=== PATIENT | female | born 1930 | race Caucasian/White ===

== ENCOUNTER 2016-07-12 10:01 | Inpatient (IN) | payer MEDICARE, OTHER ==
[~2016-07-12] VITALS: Ht 167.6 cm; Wt 64.9 kg
--- NOTE | ~2016-07-12 | PR ---
[place], [place] PROGRESS NOTE NAME: DELILAH MCARTHUR UNIT #: [id number] ROOM: 424 DOCTOR: MARIXA YEUNG MD BIRTHDATE: [birth year] DOS: 07/13/2016 REASON FOR VISIT: Elevated cardiac enzymes. SUBJECTIVE: The patient is alert, no acute distress. Denies any chest pain or shortness of breath. She wanted to go home. No PND, no orthopnea, no fever and chills. She is feeling much better. No dizziness. RHYTHM STRIPS: The patient in sinus rhythm. PHYSICAL EXAMINATION: VITAL SIGNS: Blood pressure 126/72, pulse 72, respiratory rate was 18. GENERAL: Alert, comfortable, in no acute distress. HEENT: Pupils are round and equal. No jaundice. Tongue was moist and pharynx was clear. NECK: Supple, no distended neck veins, no carotid bruit. CHEST: Symmetrical, nontender. LUNGS: Clear to auscultation bilaterally. HEART: Regular rhythm. No S3. Grade 1/6 systolic murmur. ABDOMEN: Bowel sounds normal. EXTREMITIES: Showed trace edema. SKIN: Warm and dry. No cyanosis, no clubbing. NEUROLOGIC: The patient is alert. No focal neurologic deficit. DIAGNOSTIC TESTS: Hemoglobin 13.9, creatinine 0.82. CPK 62 and 64. CK-MB was 2.4 and 2.2, troponin 0.478 and 0.348. IMPRESSION: 1. Borderline elevation of cardiac enzymes, possible non-ST segment elevation myocardial infarction versus acute renal failure. The patient denies any chest pain. 2. Acute renal failure, improved. 3. Mild dehydration, resolved. 4. Hypertension, stable. 5. Pulmonary hypertension, stable. RECOMMENDATIONS: 1. Continue current medications. 2. Discontinue the heparin tomorrow. 3. I will review her 2D echo. 4. Possible discharge tomorrow. 5. There is no family member at bedside. 6. Conservative medical therapy per family's preference. [place], [place] PROGRESS NOTE NAME: DELILAH MCARTHUR UNIT #: [id number] ROOM: 424 DOCTOR: MARIXA YEUNG MD BIRTHDATE: [birth year] MARIXA YEUNG MD CM:IVELISSE [id number] 2 MARIXA YEUNG MD 07/14/16402 interface
--- NOTE | ~2016-07-12 | CON ---
[place], [place] [facility]ATION [id number] UNIT #: [id number] ROOM: 424 DOCTOR: NEHEMIAH GALICIA ED.D (JAYLENE) BIRTHDATE: [birth year] DOS: 07/14/2016 HISTORY OF PRESENT ILLNESS: The patient is an 86-year-old female referred by the hospitalist for competency evaluation. At the present time, this patient is on the 4th floor at [facility]. This patient has been retired for many years, and is a with three children[address] Dr. Perez is her family physician, and her medical history is pertinent for depression, diabetes mellitus, GERD and dementia. Her medications include Xanax, aspirin, Celexa, metoprolol, Lasix, glipizide, Claritin, Cozaar, lovastatin, Namenda, and metformin. This patient was awake, alert and oriented to person and place only. She had no idea of the year or the time of the year. She could not answer simple questions about current events and is clearly suffering from neurocognitive decline. She does not appear to be having any active hallucinations or delusional thoughts. In my opinion, this patient is clearly not competent to make informed healthcare decisions and all decision should be made by her healthcare power of family law attorney. Apparently, her healthcare power of family law attorney is her son, family law attorney Reid Mcarthur. DIAGNOSIS: Major neurocognitive disorder - Alzheimer's disease. RECOMMENDATIONS: In my opinion, all decision should be made by her healthcare power of family law attorney. Thank you very much for this consult. NEHEMIAH GALICIA ED.D CM:CONSTR:REPORT OF CONSULTATION 1453 07/15/16 0058 interface
--- NOTE | ~2016-07-12 | PR ---
[place], [place] PROGRESS NOTE [facility]: [id number] UNIT #: [id number] ROOM: 424 DOCTOR: ANJANA MURPHY,MARIXA BIRTHDATE: [birth year] DOS: 07/14/2016 ADDENDUM REASON FOR VISIT: Elevated cardiac enzymes. This note is an addendum to the note done by Dr. Rasheed Michaels. I personally examined and assessed the patient. Rhythm strips and medications reviewed. PHYSICAL EXAMINATION: HEART: Focused cardiac exam showed heart with regular rhythm, no S3. LUNGS: Clear to auscultation. EXTREMITIES: Showed no edema. IMPRESSION: 1. Elevated cardiac enzymes, non ST-segment elevation myocardial infarction with acute renal failure. 2. Acute renal failure, resolved. 3. Pulmonary hypertension. 4. Dehydration, resolved. RECOMMENDATIONS: 1. She denies any chest pain. 2. Continue her current medications and resume Lasix 20 mg every other day. 3. Just Conservative medical therapy due to her multiple comorbidities. 4. Possibly, she will be discharged tomorrow to a rehab facility. This was discussed with her family members. 5. Cardiology will see as needed. MARIXA YEUNG MD CM:PNTRANS [id number] [id number] MARIXA YEUNG MD 07/15/16200 interface
--- NOTE | ~2016-07-12 | CON ---
[place], [place] REPORT OF CONSULTATION NAME: DELILAH MCARTHUR UNIT #: [id number] ROOM: 424 DOCTOR: ANJANA MURPHY,MARIXA BIRTHDATE: [birth year] DOS: 07/12/2016 CARDIOLOGY CONSULT REASON FOR CONSULTATION: Elevated cardiac enzymes and CHF. This note is an addendum to the note dictated by Dr. Rasheed Michaels. I personally examined and assessed the patient, discussed with her family member and the patient's past medical history, labs and pertinent information was reviewed. The case was discussed with Dr. Michaels. Dr. Michaels's examination, assessment reflects my work. The patient was admitted for shortness of breath from home. She is a poor historian due to her dementia hence history was obtained from the chart and her family. Cardiology consult was obtained because of CHF and elevated troponin. She noted to be in acute renal failure and currently receiving IV fluids. Again, she is a poor historian and hence unable to assess any accurate history as far as her chest pains are concerned. PHYSICAL EXAMINATION: HEART: Regular rhythm. Grade 1/6 systolic murmur. EXTREMITIES: Showed trace edema. LUNGS: Clear to auscultation bilaterally. REVIEW OF THE DIAGNOSTIC TESTS: EKG showed sinus rhythm with possible old anterior infarction. 2D echo in 2014 showed normal LV function with a mild to moderate tricuspid regurgitation. DIAGNOSTIC IMPRESSION: 1. Elevated troponin due to acute renal failure versus non-ST elevation myocardial infarction. 2. Chronic diastolic heart failure. 3. Moderate pulmonary hypertension. 4. Acute renal insufficiency. 5. Possible dehydration. 6. Hypertension. 7. Diabetes type 2. RECOMMENDATIONS: 1. Clinically, she appears to be stable, in no acute distress. She wanted to go home. 2. Continue her aspirin, beta blockers, statins as well as heparin. 3. Cycle her cardiac enzymes and we will check 2D echo for LV function and valvular function. 4. Her EKG showed no acute ischemic changes other than possible old anterior [place]. Continue IV fluids since clinically she appears to be slightly dehydrated with a dry tongue and there is no significant edema. Her lungs are clear. [place], [place] REPORT OF CONSULTATION NAME: DELILAH MCARTHUR UNIT #: [id number] ROOM: 424 DOCTOR: ANJANA MURPHY,MARIXA BIRTHDATE: [birth year] Just conservative medical therapy due to her age and her current code status. Resume her diuretics when she is clinically stable. Other than 2D echo, no further invasive cardiac testing at this time. MARIXA YEUNG MD CM:CONSTR:REPORT OF CONSULTATION 1457 07/13/16 0241 interface
[~2016-07-12 10:01] MED LIST: ALPRAZOLAM0.25 M2 PO; ARICEPT10 MG PO; ARICEPT5 MG PO; ASPI-COR81 MG; ASPIR-TRIN325 MG PO; ASPIRIN CHEWABL81 M1 PO; ASPIRIN81 MG PO; ATENOLOL50 MG; CALTRATE 600 +1 TAB; CITALOPRAM10 MG PO; CLARITIN10 MG PO; CORDROL20 MG PO; COZAAR50 M1 PO; DIABETA2.5 MG; DONEPEZIL HCL10 MG PO; FUROSEMIDE20 M1 PO; GLIPIZIDE XL2.5 M1 PO; GLIPIZIDE XL5 MG PO; GLIPIZIDE2.5 MG PO; LISINOPRIL10 MG PO; LISINOPRIL5 MG PO; LOPRESSOR25 MG PO; LOVASTATIN20 MG; LOVASTATIN20 MG PO; METFORMIN HCL500 MG PO; METOPROLOL SUCC25 M2 PO; PANTOPRAZOLE SO20 MG PO; PROTONIX40 MG PO; ROBITUSSIN-AC 160 ML PO; TENORMIN50 MG PO; TRAD5TAB1 PO; XANAX0.25 MG PO
[2016-07-12 10:07] VITALS: BP 150/98
[2016-07-12] MEDS ORDERED: NAMENDA10 MG PO (10:19)
[2016-07-12 10:35] LABS: BASO % 0.4 % (0.0-1.0); EOS # 0.1 10*3/uL (0.0-0.4); EOS % 0.8 % (1.0-4.0); HEMATOCRIT 43.5 % (37.0-47.0); HEMOGLOBIN 14.3 g/dl (12.0-16.0); IG # 0.1 10*3/uL (0.0-0.1); LYMPH # 1.2 10*3/uL (1.3-4.4); LYMPH % 13.1 % (27.0-41.0); MEAN CELL VOLUME 90.2 fl (81.0-99.0); MEAN CORPUSCULAR HGB 29.7 pg (27.0-31.0); MEAN CORPUSCULAR HGB CONC 32.9 g/dl (33.0-37.0); MEAN PLATELET VOLUME 10.1 fl (9.6-12.3); MONO # 0.5 10*3/uL (0.1-1.0); MONO % 5.3 % (3.0-9.0); NEUT # 7.4 10*3/uL (2.3-7.9); NEUT % 79.8 % (47.0-73.0); PLATELET COUNT AUTOMATED 125 10*3/uL (130-400); RED BLOOD COUNT 4.82 10*6/uL (4.10-5.10); RED CELL DISTRI WIDTH 12.8 % (0-14.5); WHITE BLOOD COUNT 9.3 10*3/uL (4.8-10.8)
[2016-07-12 10:45] LABS: INTERNATIONAL NORM RATIO 1.1 (2.0-3.5); PROTHROMBIN TIME 11.2 SECONDS (9.0-12.4)
[2016-07-12 10:51] LABS: ALBUMIN 3.8 gm/dl (3.1-4.5); BILIRUBIN, TOTAL 0.4 mg/dl (0.2-1.0); C-REACTIVE PROTEIN 0.51 MG/DL (0-0.3); CKMB 3.2 ng/ml (0.5-3.6); TOTAL PROTEIN 7.1 gm/dL (6.4-8.2)
[2016-07-12 10:54] LABS: TROPONIN I 0.598 ng/ml (<0.045)
[2016-07-12 11:37] LABS: BILIRUBIN NEGATIVE (NEGATIVE); BLOOD NEGATIVE (NEGATIVE); CLARITY CLEAR (CLEAR); COLOR YELLOW (YELLOW); GLUCOSE 3+ (NEGATIVE); KETONE NEGATIVE (NEGATIVE); LEUKO ESTERASE NEGATIVE (NEGATIVE); NITRITE NEGATIVE (NEGATIVE); PH 5.5 (5.0-9.0); PROTEIN NEGATIVE (NEGATIVE); SPECIFIC GRAVITY 1.015 (1.005-1.030); UROBILINOGEN 0.2 E.U./dl (0.2-1.0)
[2016-07-12 11:42] VITALS: BP 120/73
[2016-07-12 11:45] LABS: BACTERIA TRACE; URINE REFLEX COMMENT YES (NO)
[2016-07-12 12:03] VITALS: BP 105/64
[2016-07-12 12:14] LABS: CKMB 3.4 ng/ml (0.5-3.6)
[2016-07-12 12:29] LABS: TROPONIN I 0.618 ng/ml (<0.045)
[2016-07-12 12:33] LABS: LA>2 REFLEX 2 HR DRAW NOW
[2016-07-12 12:40] VITALS: BP 117/69
[2016-07-12 16:00] VITALS: BP 139/88
[2016-07-12 18:34] LABS: INTERNATIONAL NORM RATIO 1.1 (2.0-3.5); PROTHROMBIN TIME 11.6 SECONDS (9.0-12.4)
[2016-07-12 18:48] LABS: CKMB 3.5 ng/ml (0.5-3.6)
[2016-07-12 18:58] LABS: TROPONIN I 0.53 ng/ml (<0.045)
[2016-07-12 20:00] VITALS: BP 121/72
[2016-07-13 00:51] VITALS: BP 118/70; BP 178/98
[2016-07-13 01:02] LABS: CKMB 2.4 ng/ml (0.5-3.6)
[2016-07-13 01:06] LABS: TROPONIN I 0.478 ng/ml (<0.045)
[2016-07-13 06:38] LABS: BASO # 0.1 10*3/uL (0.0-0.1); BASO % 0.6 % (0.0-1.0); EOS # 0.3 10*3/uL (0.0-0.4); HEMATOCRIT 42.8 % (37.0-47.0); HEMOGLOBIN 13.9 g/dl (12.0-16.0); IG # 0.1 10*3/uL (0.0-0.1); LYMPH # 1.9 10*3/uL (1.3-4.4); LYMPH % 22.7 % (27.0-41.0); MEAN CELL VOLUME 90.1 fl (81.0-99.0); MEAN CORPUSCULAR HGB 29.3 pg (27.0-31.0); MEAN CORPUSCULAR HGB CONC 32.5 g/dl (33.0-37.0); MEAN PLATELET VOLUME 10.4 fl (9.6-12.3); MONO # 0.6 10*3/uL (0.1-1.0); MONO % 6.7 % (3.0-9.0); NEUT # 5.5 10*3/uL (2.3-7.9); NEUT % 66.3 % (47.0-73.0); PLATELET COUNT AUTOMATED 137 10*3/uL (130-400); RED BLOOD COUNT 4.75 10*6/uL (4.10-5.10); RED CELL DISTRI WIDTH 12.8 % (0-14.5); WHITE BLOOD COUNT 8.3 10*3/uL (4.8-10.8)
[2016-07-13 06:50] LABS: ALBUMIN 3.3 gm/dl (3.1-4.5); ALKALINE PHOSPHATASE 59 U/L (45-117); BILIRUBIN, TOTAL 0.4 mg/dl (0.2-1.0); BUN 13 mg/dl (7-24); CARBON DIOXIDE 29 mmol/L (21-32); CHLORIDE 106 mmol/L (98-107); CHOLESTEROL 161 mg/dL (<200); CKMB 2.2 ng/ml (0.5-3.6); CPK 68 U/L (26-192); EST GLOM FILT AFRICAN AMERICAN > 60 ml/min; GLUCOSE 218 mg/dL (65-99); HDL CHOLESTEROL 105 mg/dl (40-60); LDL CHOLESTEROL 34 mg/dL (9-159); MAGNESIUM 1.9 mg/dL (1.5-2.1); POTASSIUM 4.2 mmol/L (3.5-5.1); SGOT/AST 18 IU/L (3-35); SGPT/ALT 16 U/L (12-78); SODIUM 143 mmol/L (136-145); TOTAL PROTEIN 6.5 gm/dL (6.4-8.2); TRIGLYCERIDES 109 mg/dl (<150); VLDL CHOLESTEROL 22 mg/dL (6-40)
[2016-07-13 06:51] LABS: TROPONIN I 0.343 ng/ml (<0.045)
[2016-07-13 07:05] LABS: HEMOGLOBIN A1c 11.2 % (4.8-5.6)
[2016-07-13 07:56] LABS: VITAMIN D, 25-HYDROXY 8.4 ng/mL (30-100)
[2016-07-13 07:57] LABS: FOLIC ACID > 24.00 ng/mL (>5.38)
[2016-07-13 08:00] VITALS: BP 126/72
[2016-07-13 12:00] VITALS: BP 149/79
[2016-07-13 16:00] VITALS: BP 148/75
[2016-07-13 20:00] VITALS: BP 149/82
[2016-07-14] VITALS: BP 149/79
[2016-07-14 08:00] VITALS: BP 160/80
[2016-07-14 12:00] VITALS: BP 149/71
[2016-07-14 16:00] VITALS: BP 129/71
[2016-07-14 20:00] VITALS: BP 154/74
[2016-07-15] VITALS: BP 125/77
[2016-07-15 08:00] VITALS: BP 152/79
[2016-07-15 12:00] VITALS: BP 125/63
[2016-07-15] MEDS ORDERED: GLUCOPHAGE500 MG PO (12:04)
== END 2016-07-15 13:30 | disposition other institution (70) | DRG 280 ==
LOC: ED 10:01 → EDHOLD 11:17 → 4E 11:17
PROVIDERS: Emergency Medicine; Family Medicine; Internal Medicine
DX: I21.4 Non-ST elevation (NSTEMI) myocardial infarction (principal); N17.0 Acute kidney failure with tubular necrosis; I50.33 Acute on chronic diastolic (congestive) heart failure; E87.2 Acidosis; D69.6 Thrombocytopenia, unspecified; E11.65 Type 2 diabetes mellitus with hyperglycemia; F41.9 Anxiety disorder, unspecified; F32.9 Major depressive disorder, single episode, unspecified; K21.9 Gastro-esophageal reflux disease without esophagitis; E78.5 Hyperlipidemia, unspecified; I11.0 Hypertensive heart disease with heart failure; Z83.3 Family history of diabetes mellitus; Z82.49 Family history of ischemic heart disease and other diseases of the circulatory system; D72.810 Lymphocytopenia; I27.2 Other secondary pulmonary hypertension; G30.9 Alzheimer's disease, unspecified; F02.80 Dementia in other diseases classified elsewhere, unspecified severity, without behavioral disturbance, psychotic disturbance, mood disturbance, and anxiety